=== PATIENT | male | born 1940 | race Caucasian/White ===

== ENCOUNTER → 2017-06-10 | Outpatient (CLI) | payer OTHER ==
[~2017-06-10] MED LIST: ASPI-496 PO; ATOR40TA78 PO; CHOL200024 PO; ENAL5TAB PO; LEVO175T5 PO; MULT-696 PO; OMEP-110 PO
[2017-06-10 10:39] LABS: HEMOGLOBIN 15.9 g/dL (13.7-18.0); WHITE BLOOD COUNT 11.6 x10^3/uL (3.4-10)
[2017-06-10 10:59] LABS: ASPARTATE AMINO TRANSFERASE 15 U/L (15-37); BLOOD UREA NITROGEN 15 mg/dL (7-18); PROSTATE SPECIFIC ANTIGEN 0.73 ng/mL (0.00-4.00)
== END | disposition home or self-care (01) ==
LOC: CFH 07:17
PROVIDERS: ATTEND Internal Medicine
DX: E03.9 Hypothyroidism, unspecified (principal); E78.5 Hyperlipidemia, unspecified; D64.9 Anemia, unspecified; N40.0 Benign prostatic hyperplasia without lower urinary tract symptoms
CPT/HCPCS: 36415; 80053; 80061; 84153; 84439; 84443; 85025

== ENCOUNTER → 2017-09-01 | Outpatient (CLI) | payer OTHER ==
[~2017-09-01] MED LIST changes: +CALCIUM PLUS D3 PO; +JOINT ADVANTAGE GOLD PO; +OMEG-14 PO; +PANT40TA5 PO; +[UNRECOGNIZED DRUG - OTHER]; +[UNRECOGNIZED DRUG - OTHER]; +[UNRECOGNIZED DRUG - OTHER]; +[UNRECOGNIZED DRUG - OTHER]; +[UNRECOGNIZED DRUG - OTHER]; +[UNRECOGNIZED DRUG - OTHER] PO
[2017-09-01 10:05] LABS: ASPARTATE AMINO TRANSFERASE 18 U/L (15-37); BLOOD UREA NITROGEN 15 mg/dL (7-18)
== END | disposition home or self-care (01) ==
LOC: STAR 08:49
PROVIDERS: ATTEND Thoracic Surgery (Cardiothoracic Vascular Surgery)
DX: Z01.818 Encounter for other preprocedural examination (principal); R94.31 Abnormal electrocardiogram [ECG] [EKG]; K40.90 Unilateral inguinal hernia, without obstruction or gangrene, not specified as recurrent; I10 Essential (primary) hypertension; E03.9 Hypothyroidism, unspecified; E78.00 Pure hypercholesterolemia, unspecified; K21.9 Gastro-esophageal reflux disease without esophagitis
CPT/HCPCS: 36415; 80053; 93005

== ENCOUNTER 2017-09-14 07:18 | Day surgery (SDC) | payer OTHER ==
[2017-09-01 09:17] VITALS: BP 133/89
[~2017-09-14] VITALS: Ht 185.4 cm; Wt 92.0 kg
[~2017-09-14 07:18] MED LIST changes: +BUPIVACAINE/PF 0.5% ONE; +EPINEPHRINE 1 MG/ML, 1ML ONE
[2017-09-14] MEDS ORDERED: LACTATED RINGERS 1,000 ML IV SCH ×2 (07:41→11:02)
[2017-09-14] MEDS ORDERED: ATOR40TA78 PO (07:59)
[2017-09-14] MEDS ORDERED: CHOL2000 PO (07:59)
[2017-09-14] MEDS ORDERED: OMEG1CAP23 PO (07:59)
[2017-09-14] MEDS ORDERED: ASPI-621 PO (07:59)
[2017-09-14] MEDS ORDERED: ENAL5TAB PO (07:59)
[2017-09-14] MEDS ORDERED: LEVO50TA5 PO (08:01)
[2017-09-14] MEDS ORDERED: FENTANYL PF 100 MCG/2ML ONE ×3 (08:25→11:01)
[2017-09-14] MEDS ORDERED: MIDAZOLAM 1 MG/ML, 2ML ONE (08:25)
[2017-09-14] MEDS ORDERED: PROPOFOL 10 MG/ML, 20ML ONE (09:34)
[2017-09-14] MEDS ORDERED: SUCCINYLCHOLINE 20 MG/ML, 10ML ONE (09:34)
[2017-09-14] MEDS ORDERED: ROCURONIUM 10 MG/ML,10ML ONE ×2 (09:34→09:38)
[2017-09-14] MEDS ORDERED: DEXAMETHASONE 4 MG/ML, 1ML ONE (09:34)
[2017-09-14] MEDS ORDERED: NEOSTIGMINE 1 MG/ML, 10ML ONE (09:34)
[2017-09-14] MEDS ORDERED: ONDANSETRON 2MG/ML, 2ML ONE (09:34)
[2017-09-14] MEDS ORDERED: CEFAZOLIN 1,000 MG ONE (09:34)
[2017-09-14] MEDS ORDERED: GLYCOPYRROLATE 0.2MG/1ML, 5ML ONE (09:34)
[2017-09-14] MEDS ORDERED: ACETAMINOPHEN 325 MG TABLET PO PRN (10:00)
[2017-09-14] MEDS ORDERED: MIDAZOLAM 1 MG/ML, 2ML IV PRN (10:00)
[2017-09-14] MEDS ORDERED: EPHEDRINE 50 MG/ML, 1ML IVPush PRN (10:00)
[2017-09-14] MEDS ORDERED: hydrALAzine 20 MG/ML, 1ML IV PRN (10:00)
[2017-09-14] MEDS ORDERED: HYDROmorphone 1 MG/ML, 1ML IV PRN (10:00)
[2017-09-14] MEDS ORDERED: METOPROLOL 1 MG/ML, 5ML IV PRN (10:00)
[2017-09-14] MEDS ORDERED: ALBUTEROL SULFATE 2.5 MG/3 ML NPPB PRN (10:00)
[2017-09-14] MEDS ORDERED: PROMETHAZINE 25 MG/ML, 1ML IV PRN (10:00)
[2017-09-14] MEDS ORDERED: DIAZEPAM 5 MG/ML, 2ML IVPush PRN (10:00)
[2017-09-14] MEDS ORDERED: LABETALOL 5MG/ML, 20ML IV PRN (10:00)
[2017-09-14] MEDS ORDERED: MEPERIDINE/PF 25MG/0.5ML IVPush PRN (10:00)
[2017-09-14] MEDS ORDERED: ONDANSETRON 2MG/ML, 2ML IVPush PRN ×2 (10:00→11:30)
[2017-09-14] MEDS ORDERED: KETOROLAC 30 MG/1 ML ONE (11:00)
[2017-09-14] MEDS ORDERED: HYDROmorphone 1 MG/ML, 1ML ONE (11:01)
[2017-09-14] MEDS: FENTANYL PF 100 MCG/2ML IV PRN ×2 (11:05→11:23)
[2017-09-14] MEDS ORDERED: ACETAMINOPHEN 325 MG TABLET ONE (11:14)
[2017-09-14] MEDS ORDERED: ACETAMINOPHEN 650 MG/20.3 ML UDC ONE (11:14)
[2017-09-14] MEDS ORDERED: HYDROcodone/APAP 5/325 TABLET PO PRN (11:30)
[2017-09-14] MEDS ORDERED: KETOROLAC 30 MG/1 ML IVPush PRN (11:30)
[2017-09-14] MEDS ORDERED: morphine SULFATE 10 MG/ML, 1ML IVPush PRN (11:30)
== END 2017-09-14 14:40 | disposition home or self-care (01) ==
LOC: OUT 07:18
PROVIDERS: ATTEND Thoracic Surgery (Cardiothoracic Vascular Surgery)
DX: K40.90 Unilateral inguinal hernia, without obstruction or gangrene, not specified as recurrent (principal); K21.9 Gastro-esophageal reflux disease without esophagitis; E78.00 Pure hypercholesterolemia, unspecified; E03.9 Hypothyroidism, unspecified; F17.210 Nicotine dependence, cigarettes, uncomplicated; Z98.890 Other specified postprocedural states; Z79.82 Long term (current) use of aspirin; Z72.89 Other problems related to lifestyle
CPT/HCPCS: 49650; C1781; J0171; J0330; J0690; J1100; J1170; J2250; J2405; J2704; J2710; J3010; J3490; J7120

== ENCOUNTER → 2017-12-27 | Outpatient (CLI) | payer OTHER ==
[~2017-12-27] MED LIST changes: +ASPI-621 PO; -BUPIVACAINE/PF 0.5% ONE; +CHOL2000 PO; -EPINEPHRINE 1 MG/ML, 1ML ONE; +LEVO50TA5 PO; +OMEG1CAP23 PO
[2017-12-27 12:53] LABS: ALBUMIN 4.2 g/dL (3.4-5.0); ANION GAP 5 mmol/L (5-15); CALCIUM 9.1 mg/dL (8.5-10.1); CHLORIDE 105 mmol/L (98-107)
[2017-12-27 13:03] LABS: ALANINE AMINOTRANSFERASE 27 U/L (12-78); ALKALINE PHOSPHATASE 71 U/L (45-117); BILIRUBIN,TOTAL 0.8 mg/dL (0.2-1.0); CHOL/HDL RATIO 3.3; CHOLESTEROL, TOTAL 122 mg/dL (140-239); CREATININE 1.02 mg/dL (0.7-1.3); HDL CHOL % 30 % (26-37); HDL CHOLESTEROL (DIRECT) 37 mg/dL (40-60); LDL CHOLESTEROL,CALCULATED 67 mg/dL (54-169); LDL/HDL RATIO 1.8 (0.5-3.0); T4 (THYROXINE) 11.4 mcg/dL (4.5-12.1); TOTAL PROTEIN 7.3 g/dL (6.4-8.2); TRIGLYCERIDES 90 mg/dL (50-200); VLDL CHOLESTEROL 18 mg/dL (0-25)
== END ==
LOC: CFH 07:09
PROVIDERS: ATTEND Internal Medicine Cardiovascular Disease
DX: Z01.818 Encounter for other preprocedural examination (principal); S05.01XA Injury of conjunctiva and corneal abrasion without foreign body, right eye, initial encounter; X58.XXXA Exposure to other specified factors, initial encounter; Y93.89 Activity, other specified; Y92.89 Other specified places as the place of occurrence of the external cause; Y99.8 Other external cause status
CPT/HCPCS: 36415; 80053; 80061; 84436; 84443; 84481

== ENCOUNTER → 2018-04-27 | Outpatient (CLI) | payer OTHER | END | disposition home or self-care (01) | LOC: CFH 16:02 | PROVIDERS: ATTEND Internal Medicine | DX: M71.22 Synovial cyst of popliteal space [Baker], left knee (principal); R60.9 Edema, unspecified ==

== ENCOUNTER → 2018-05-04 | Outpatient (CLI) | payer OTHER | END | disposition home or self-care (01) | LOC: CFH 11:10 | PROVIDERS: ATTEND Internal Medicine | DX: E29.1 Testicular hypofunction (principal) | CPT/HCPCS: 36415; 84403 ==